=== PATIENT | male | born 1970 | race Caucasian/White ===

== ENCOUNTER 2016-08-05 17:19 | Emergency (ER) | payer MEDICAID ==
[2016-08-05 17:27] VITALS: BP 126/89; PULSE 93; RESP 18; TEMP 98.4; O2SAT 94
--- NOTE | 2016-08-05 17:50 | EDPHY ---
H & P Stated Complaint: wants heart checked for [facility] Time Seen by Provider: 08/05/16 17:39 HPI/ROS: CHIEF COMPLAINT: Medical clearance HISTORY OF PRESENT ILLNESS: The patient is a 46-year-old man who has been evaluated at the mental health clinic and they are placing him in respite care . They sent him here for medical clearance because they are concerned about his cardiac condition. The patient has no complaints but had a cardiac catheterization 1 week ago and had 2 stents placed. He states that he is feeling great since the procedure. He does have a small amount of erythema and swelling to his left elbow where he had an IV placed. No warmth to the touch or fever. No pain in his groin or thrill. REVIEW OF SYSTEMS: Constitutional: denies: chills, fever, recent illness, recent injury EENTM: denies: blurred vision, double vision, nose congestion Respiratory: denies: cough, shortness of breath Cardiac: denies: chest pain, irregular heart rate, lightheadedness, palpitations Gastrointestinal/Abdominal: denies: abdominal pain, diarrhea, nausea, vomiting, blood streaked stools Genitourinary: denies: dysuria, frequency, hematuria, pain Musculoskeletal: denies: joint pain, muscle pain Skin: See HPI Neurological: denies: headache, numbness, paresthesia, tingling, dizziness, weakness Hematologic/Lymphatic: denies: blood clots, easy bleeding, easy bruising Immunologic/allergic: denies: HIV/AIDS, transplant EXAM: GENERAL: Well-appearing, well-nourished and in no acute distress. HEAD: Atraumatic, normocephalic. EYES: Pupils equal round and reactive to light, extraocular movements intact, sclera anicteric, conjunctiva are normal. ENT: TMs normal, nares patent, oropharynx clear without exudates. Moist mucous membranes. NECK: Normal range of motion, supple without lymphadenopathy or JVD. LUNGS: Breath sounds clear to auscultation bilaterally and equal. No wheezes rales or rhonchi. HEART: Regular rate and rhythm without murmurs, rubs or gallops. ABDOMEN: Soft, nontender, normoactive bowel sounds. No guarding, no rebound. No masses appreciated. BACK: No CVA tenderness, no spinal tenderness, step-offs or deformities EXTREMITIES: Normal range of motion, no pitting or edema. No clubbing or cyanosis. NEUROLOGICAL: Cranial nerves II through XII grossly intact. Normal speech, normal gait. 5/5 strength, normal movement in all extremities, normal sensation PSYCH: Normal mood, normal affect. SKIN: Small erythematous area of early cellulitis to left proximal arm on ulnar aspect. He states that this is a site of a previous IV start. Source: Patient Exam Limitations: No limitations - Personal History Current Tetanus Diphtheria and Acellular Pertussis (TDAP): Yes Tetanus Vaccine Date: < 10 years - Medical/Surgical History Hx Asthma: No Hx Chronic Respiratory Disease: Yes Hx Diabetes: No Hx Cardiac Disease: Yes Hx Renal Disease: No Hx Cirrhosis: No Hx Alcoholism: Yes Hx HIV/AIDS: No Hx Splenectomy or Spleen Trauma: No Other PMH: recovering ETOH abuse, HTN, neuropathy, bipolar, PTSD, Cardiac Stents - Family History Significant Family History: No pertinent family hx - Social History Smoking Status: Current every day smoker Alcohol Use: None Drug Use: None Constitutional: Initial Vital Signs Temperature (C) 36.9 C 08/05/16 17:24 Heart Rate 93 08/05/16 17:24 Respiratory Rate 18 08/05/16 17:24 Blood Pressure 126/89 H 08/05/16 17:24 O2 Sat (%) 94 08/05/16 17:24 O2 Delivery Mode Room Air Allergies/Adverse Reactions: codeine Allergy (Verified 08/05/16 17:27) Penicillins Allergy (Verified 08/05/16 17:27) Home Medications: Medication Instructions Recorded Aspirin [Aspirin 81mg (OTC)] 81 mg PO DAILY 10/21/15 Atorvastatin Calcium [Lipitor] 40 mg PO DAILY 10/21/15 Clopidogrel Bisulfate [Plavix (RX)] 75 mg PO DAILY 10/21/15 Gabapentin [Neurontin] 600 mg PO TID 10/21/15 Lisinopril [Zestril] 5 mg PO DAILY 10/21/15 QUEtiapine FUMARATE [SEROquel] 200 mg PO DAILY 10/21/15 Ziprasidone HCl [Geodon] 40 mg PO DAILY18 10/21/15 Aleve 11/22/15 Metoprolol Tartrate 11/22/15 Nitroglycerin 11/22/15 oxyCODONE/APAP 5/325 [Percocet 1 - 2 tab PO Q4PRN PRN #9 tab 07/10/16 5/325 (*)] Ranolazine [Ranexa] 1,000 mg PO BID #60 tab.er.12h 12/24/15 Cephalexin [Keflex] 500 mg PO TID #21 cap 08/05/16 Effient 08/05/16 Medical Decision Making ED Course/Re-evaluation: Will start the patient on Keflex for his early cellulitis. there are no concerning signs of cardiac disease or symptoms at this time. He is medically cleared for the respite care. [facility] is requesting that we obtain urine for the patient for or toxicology testing. The results of this test will be a different twitches placement. We will obtain urine then release him for placement. Differential Diagnosis: Partial list of the Differential diagnosis considered include but were not limited to; cellulitis, bipolar and although unlikely based on the history and physical exam, I also considered arrhythmia, hematoma, pseudoaneurysm. I discussed these differential diagnoses and the plan with the patient as well as the usual and expected course. The patient understands that the diagnosis is provisional and that in medicine we are not always correct and that further workup is often warranted. Usual and customary warnings were given. All of the patient's questions were answered. The patient was instructed to return to the emergency department should the symptoms at all worsen or return, otherwise to followup with the physician as we discussed. - Data Points Laboratory Results: 08/05/16 18:00 Urine Opiates Screen Pending Urine Barbiturates Pending Ur Phencyclidine Scrn Pending Ur Amphetamine Screen Pending U Benzodiazepines Scrn Pending Urine Cocaine Screen Pending U Marijuana (THC) Screen Pending Medications Given: Discontinued Medications Cephalexin HCl (Keflex) 500 mg PO EDNOW ONE PRN Reason: Protocol Stop: 08/05/16 17:53 Last Admin: 08/05/16 18:26 Dose: 500 mg Departure - Departure Disposition: Home, Routine, Self-Care Clinical Impression: Cellulitis Qualifiers: Site of cellulitis: extremity Site of cellulitis of extremity: upper extremity Laterality: left Qualified Code(s): L03.114 - Cellulitis of left upper limb Condition: Fair Instructions: Cellulitis (ED) Additional Instructions: CLEARED FOR RESPITE HOUSING PLACEMENT Referrals: [facility] [Other] - As per Instructions Anamaria Wild MD [Medical Doctor] - As per Instructions Prescriptions: Cephalexin [Keflex] 500 mg PO TID #21 cap
[2016-08-05] MEDS ORDERED: CEPHALEXIN 500 MG CAP PO ONE (17:52)
== END 2016-08-05 18:27 | disposition home or self-care (01) ==
DX: L03.114 Cellulitis of left upper limb (principal); F17.200 Nicotine dependence, unspecified, uncomplicated; I10 Essential (primary) hypertension; Z79.82 Long term (current) use of aspirin; Z95.5 Presence of coronary angioplasty implant and graft
CPT/HCPCS: 80305

== ENCOUNTER 2016-08-16 10:28 | Emergency (ER) | payer MEDICAID ==
[2016-08-16 10:37] VITALS: TEMP 98.6
--- NOTE | 2016-08-16 10:56 | EDPHY ---
H & P Time Seen by Provider: 08/16/16 10:51 HPI/ROS: CHIEF COMPLAINT: Left foot/toe injury HISTORY OF PRESENT ILLNESS: This patient is a 46 year old man presenting with acute injury to his left foot, sustained when trying to get out of bed quickly this morning. The pain is mainly localized to the small toe (5th digit) and lateral foot. The pain is moderate in severity. He denies paresthesia or weakness. ROS: No numbness, weakness, excessive bleeding, syncopal episode, other injury. Past Medical/Surgical History: Non-contributory Social History: Homeless Smoking Status: Current every day smoker Physical Exam: Alert and oriented x3, no acute distress Extremities: Ecchymosis and tenderness to the left 5th toe and lateral foot. No hip or knee pain with range of motion. Ankle non-tender. Skin: No lacerations Neuro: Motor and sensory intact Vascular: Capillary refill brisk distally, 2+ dorsalis pedis and posterior tibial pulses Constitutional: Initial Vital Signs Temperature (C) 37.0 C 08/16/16 10:34 Heart Rate 97 08/16/16 10:34 Respiratory Rate 16 08/16/16 10:34 Blood Pressure 109/73 08/16/16 10:34 O2 Sat (%) 91 L 08/16/16 10:34 O2 Delivery Mode Room Air Allergies/Adverse Reactions: codeine Allergy (Verified 08/05/16 17:27) Penicillins Allergy (Verified 08/05/16 17:27) Home Medications: Medication Instructions Recorded Atorvastatin Calcium [Lipitor] 40 mg PO DAILY 10/21/15 Gabapentin [Neurontin] 600 mg PO TID 10/21/15 Lisinopril [Zestril] 5 mg PO DAILY 10/21/15 QUEtiapine FUMARATE [SEROquel] 200 mg PO DAILY 10/21/15 Ziprasidone HCl [Geodon] 40 mg PO DAILY18 10/21/15 Aleve 11/22/15 Nitroglycerin 11/22/15 Ranolazine [Ranexa] 1,000 mg PO BID #60 tab.er.12h 12/24/15 Cephalexin [Keflex] 500 mg PO TID #21 cap 08/05/16 Effient 08/05/16 Medical Decision Making - Diagnostics Imaging: X-ray of the left foot was obtained. I viewed the images myself on the PACS system. My interpretation of the images is: No acute findings. The radiologist interpretation is pending at this time. I discussed the x-ray findings with the patient. ED Course/Re-evaluation: Patient presents with injury to the left 5th toe/lateral foot, sustained while getting out of bed in a hurry this morning. Tenderness and ecchymosis to the left 5th toe on exam. Ankle, knee, and hip are atraumatic and have full range of motion without pain. Left foot x-ray negative for fx. Toes buddytaped. Departure - Departure Disposition: Home, Routine, Self-Care Clinical Impression: Foot contusion Condition: Good Instructions: Foot Contusion (ED) Additional Instructions: Rest, ice, elevation. Follow up with you primary care provider in one week if pain persists. Return to the emergency department for worsening pain, swelling , numbness, weakness or other concerns. Adult Pain & Fever Control: We recommend Acetaminophen (Tylenol) and Ibuprofen (Motrin,Advil) for pain and fever control. When fever is high or pain severe, both drugs can be used at the same time, but at different intervals. Please note the time differences. Your dose is: Acetaminophen 650mg every 4 to 6 hours Ibuprofen 600mg every 6-8 hours with food OR Naproxen Sodium (Aleve) 200mg every 12 hours. Note: do not take Acetaminophen with Hydrocodone (Vicodin, Lortab) or Oycodone (Percocet). These medications also contain Acetaminophen. No more than 3000mg of Acetaminophen should be taken in 24 hours (for an adult). Referrals: [facility] [Other] - As per Instructions Report Scribed for: Magdalena Riggs Report Scribed by: Marycarmen Braden Date of Report: 08/16/16 Time of Report: 10:56 Physician Review and Approval Statement: 08/16/16 10:56 Portions of this note were transcribed by a medical apparatus model maker. I personally performed a history, physical exam, medical decision making, and confirmed accuracy of information the transcribed note.
[2016-08-16 12:14] VITALS: BP 105/71; PULSE 100; RESP 14; O2SAT 88
== END 2016-08-16 12:12 | disposition home or self-care (01) ==
DX: S90.32XA Contusion of left foot, initial encounter (principal); F17.200 Nicotine dependence, unspecified, uncomplicated; X58.XXXA Exposure to other specified factors, initial encounter

== ENCOUNTER 2016-09-05 18:37 | Emergency (ER) | payer MEDICAID ==
--- NOTE | 2016-09-05 18:42 | EDPHY ---
H & P Time Seen by Provider: 09/05/16 18:41 HPI/ROS: CHIEF COMPLAINT: Ongoing low back pain following fall HISTORY OF PRESENT ILLNESS: The patient presents to the ED complaining of ongoing low back pain following a fall 2 weeks ago. He was seen in the ED and had x-rays of his ankle which were negative. The patient was given a prescription for Flexeril which she reports has not improved his symptoms. The patient is chronically on gabapentin. The patient reports that he is able to ambulate throughout the day and carry 40 lb backpack. He primarily has more significant symptoms in the morning. The patient denies any acute numbness or weakness. He denies fever. He denies additional complaints. The patient does have a history of known coronary artery disease but specifically denies chest pain or shortness of breath. REVIEW OF SYSTEMS: A comprehensive 10 point review of systems is otherwise negative aside from elements mentioned in the history of present illness. Source: Patient Exam Limitations: No limitations - Personal History Tetanus Vaccine Date: < 10 years - Medical/Surgical History Hx Asthma: No Hx Chronic Respiratory Disease: Yes Hx Diabetes: No Hx Cardiac Disease: Yes Hx Renal Disease: No Hx Cirrhosis: No Hx Alcoholism: Yes Hx HIV/AIDS: No Hx Splenectomy or Spleen Trauma: No Other PMH: recovering ETOH abuse, HTN, neuropathy, bipolar, PTSD, Cardiac Stents 07/30/16 - Social History Smoking Status: Current every day smoker - Physical Exam Exam: General Appearance: Alert, no distress Eyes: Pupils equal and round no pallor or injection ENT, Mouth: Mucous membranes moist Respiratory: There are no retractions, lungs are clear to auscultation Cardiovascular: Regular rate and rhythm Gastrointestinal: Abdomen is soft and nontender, no masses, bowel sounds normal Neurological: 5/5 strength noted throughout all muscle groups in the bilateral lower extremities, no evidence of a sensory deficit appreciated Skin: Warm and dry, no rashes Musculoskeletal: Tenderness to palpation noted throughout the lower lumbar spine paraspinal muscles, normal range of motion noted bilateral lower extremities, no clinical evidence of fracture Extremities: symmetrical, full range of motion Allergies/Adverse Reactions: codeine Allergy (Verified 08/05/16 17:27) Penicillins Allergy (Verified 08/05/16 17:27) Home Medications: Medication Instructions Recorded Atorvastatin Calcium [Lipitor] 40 mg PO DAILY 10/21/15 Gabapentin [Neurontin] 600 mg PO TID 10/21/15 Lisinopril [Zestril] 5 mg PO DAILY 10/21/15 QUEtiapine FUMARATE [SEROquel] 200 mg PO DAILY 10/21/15 Ziprasidone HCl [Geodon] 40 mg PO DAILY18 10/21/15 Aleve 11/22/15 Nitroglycerin 11/22/15 Ranolazine [Ranexa] 1,000 mg PO BID #60 tab.er.12h 12/24/15 Cephalexin [Keflex] 500 mg PO TID #21 cap 08/05/16 Effient 08/05/16 Diclofenac Sodium [Voltaren 75 MG 75 mg PO BID PRN #20 tab 09/05/16 (*)] Medical Decision Making ED Course/Re-evaluation: I reviewed the patient's past medical records including his workup from 2 weeks ago. He presents to the ED with ongoing myofascial symptoms of pain and spasm. The patient will be provided a prescription for diclofenac. The patient is advised to follow up with his primary care provider should he have worsening symptoms. The patient is not been provided narcotic pain medications or benzodiazepines in the ED today Departure - Departure Disposition: Home, Routine, Self-Care Clinical Impression: Acute myofascial strain Condition: Good Instructions: Musculoskeletal Pain (ED) Additional Instructions: 1. Take diclofenac as directed for pain. 2. Please schedule a follow-up appointment with your primary care provider at [facility] for any ongoing symptoms. The [facility] has walk-in appointments for the homeless at the following days/locations. No appointment is needed. Wednesday 8-10 am @ [facility] 11 AM-1 PM @ [facility] Wednesday 8-10:30 AM @ [facility] Wednesday 8-10 AM @ [facility] 2-4 PM @ [facility] Wednesday 8-10 AM @ [facility] Referrals: [facility],. [Clinic] - As per Instructions
[2016-09-05 20:09] VITALS: BP 128/77; PULSE 70; RESP 14; TEMP 98.4; O2SAT 94
== END 2016-09-05 20:08 | disposition home or self-care (01) ==
LOC: EDUNIT#
DX: S39.012D Strain of muscle, fascia and tendon of lower back, subsequent encounter (principal); I10 Essential (primary) hypertension; I25.10 Atherosclerotic heart disease of native coronary artery without angina pectoris; F17.200 Nicotine dependence, unspecified, uncomplicated; Z95.5 Presence of coronary angioplasty implant and graft; W19.XXXD Unspecified fall, subsequent encounter

== ENCOUNTER 2016-09-07 09:02 | Inpatient (IN) | payer MEDICAID ==
--- NOTE | 2016-09-07 09:04 | EDPHY ---
H & P Time Seen by Provider: 09/07/16 09:04 Constitutional: Initial Vital Signs Temperature (C) 37.9 C 09/07/16 09:21 Heart Rate 150 H 09/07/16 09:21 Respiratory Rate 20 09/07/16 09:21 Blood Pressure 150/86 H 09/07/16 09:21 O2 Sat (%) 93 09/07/16 09:21 O2 Delivery Mode Nasal Cannula O2 (L/minute) 5 Allergies/Adverse Reactions: codeine Allergy (Verified 08/05/16 17:27) Penicillins Allergy (Verified 08/05/16 17:27) Home Medications: Medication Instructions Recorded Atorvastatin Calcium [Lipitor] 40 mg PO DAILY 10/21/15 Clopidogrel Bisulfate [Plavix (*)] 75 mg PO DAILY 09/07/16 Gabapentin [Neurontin 300 MG (*)] 900 mg PO TID 09/07/16 Herbals/Supplements -Info Only 1 ea PO DAILY 09/07/16 Lisinopril [Zestril 5 mg (*)] 5 mg PO DAILY 09/07/16 QUEtiapine FUMARATE [Seroquel 100 300 mg PO HS 09/07/16 mg (*)] Ranolazine [Ranexa] 1,000 mg PO DAILY 09/07/16 Ziprasidone HCl [Geodon 20MG (*)] 60 mg PO HS 09/07/16 Ziprasidone HCl [Geodon 40MG (*)] 40 mg PO DAILY 09/07/16 Medical Decision Making - Diagnostics Imaging: Imaging Impressions Chest X-Ray 09/07/16 09:12 Impression: Perihilar bronchitis with a possible developing left basilar infiltrate. Head CT 09/07/16 09:53 Impression: There is no acute abnormality identified on this unenhanced CT evaluation. If there is further clinical concern regarding the patient's symptoms, MR imaging is suggested, if not otherwise contraindicated. Findings and recommendations were discussed with Hima Teran MD at 10:25 am, on 09/07/2016. ED Course/Re-evaluation: CHIEF COMPLAINT: AMS HISTORY OF PRESENT ILLNESS: The patient is a 46 y/o male [facility] with altered mental status of unknown duration. EMS reports he was hypoxemic in the 80s, tachycardic in the 140s, with slurred speech, and some disorientation to time and place. He endorses one episode of bilious vomiting this morning. He has access to narcotics and benzos, but denies inappropriate use of these. He denies headache, chest pain, shortness of breath, abdominal pain, leg swelling. He is quite somnolent and unable to provide detailed history or his past medical history. He denies recent alcohol or illicit substance use. REVIEW OF SYSTEMS: Limited by patient presentation. PHYSICAL EXAM: HR, BP, O2 Sat, RR. Temp noted General Appearance: Somnolent, disoriented, well hydrated, appropriate when roused. Head: Atraumatic without scalp tenderness or obvious injury Eyes: Pupils constricted, equal, round, reactive to light and accommodation, EOMI, no trauma, no injection. Nose: Atraumatic, no rhinorrhea, clear. Throat: mucus membranes moist. Neck: Supple, nontender, no lymphadenopathy. Respiratory: No retractions, no distress, no wheezes, and no accessory muscle use. Lungs are clear but diminished bilaterally. Cardiovascular: Tachycardic regular rate and rhythm, no murmurs, rubs, or gallops. Good capillary refill all extremities. Gastrointestinal: Abdomen is soft, nontender, non-distended, no masses, no rebound, no guarding, no peritoneal signs. Musculoskeletal: Normal active ROM of all extremities, atraumatic. Neurological: Somnolent, appropriate, minimally interactive. Slurred speech, confusion, oriented x2. No focal deficit. Bilateral nystagmus. Skin: No rashes, good turgor, no nodules on palpation. Past medical history: Unable to answer. Obtained from records: alcohol abuse, hypertension, neuropathy, bipolar disorder, PTSD Past surgical history: Unable to answer. Obtained from records: multiple cardiac stents - most recent first week of July 2016 Family history: unable to answer Social history: Denies recent alcohol or illicit drug use. Homeless. Prior medical records reviewed including ED visit 09/05/16 for back pain and cardiac catheterization from 11/22/15 that showed total occlusion of RCA. DIAGNOSTICS/PROCEDURES/CRITICAL CARE TIME: Chest x-ray and head CT. I viewed the images myself on the PACS system. The 12 lead EKG was interpreted by myself. Sinus tachycardia rate 149. See hard copy and/or "tracemaster" electronic copy for interpretation. DIFFERENTIAL DIAGNOSIS: The differential diagnosis for the patient's fever included but was not limited to pneumonia, urinary tract infection, viral syndrome, meningitis, and sepsis. MEDICAL DECISION MAKING: This is a chronically-ill homeless 46 y/o male who presents with altered mentation, tachycardia, and hypoxemia from [facility] He is minimally able to contribute to his history during assessment. He denies pain, shortness of breath, or other complaints but is clearly disoriented and somnolent. He is tachycardic in the 140s and hypoxemic around 86% on room air. He meets initial sepsis screening criteria. Plan for sepsis work up. IV established by EMS. Labs drawn including CBC, CHEM, lactate, cultures, UA and urine toxicology. Chest x-ray, head CT, and EKG ordered. 0945: WBC and lactate elevated. Persistent tachycardia. Patient meets severe sepsis criteria. 1L IV NS, 10mg IV Decadron, 2gm IV Cefepime, and 750mg IV Levaquin administered. 1025: Chest x-ray shows multilobar infiltrate and possible congestive failure. Head CT negative. Patient will require admission for severe sepsis and pneumonia. Hospitalist paged. 1028: Dr. Williamson accepts admission for pneumonia, AMS, hypoxemia, and severe sepsis. - Data Points Laboratory Results: Laboratory Results 09/07/16 09:05 09/07/16 09:05 09/07/16 09/07/16 09/07/16 09:30 09:05 09:05 WBC RBC Hgb Hct MCV MCH MCHC RDW Plt Count MPV Neut % (Auto) Lymph % (Auto) [place] % (Auto) Eos % (Auto) Baso % (Auto) Nucleat RBC Rel Count Absolute Neuts (auto) Absolute Lymphs (auto) Absolute Monos (auto) Absolute Eos (auto) Absolute Basos (auto) Absolute Nucleated RBC Immature Gran % Immature Gran # PT INR APTT VBG Lactic Acid 2.7 mmol/L H mmol/L (0.7-2.1) Sodium Potassium Chloride Carbon Dioxide Anion Gap BUN Creatinine Estimated GFR Glucose Calcium Total Bilirubin Troponin I 0.024 ng/mL ng/mL (0-0.034) NT-Pro-B Natriuret Pep Pending Ethyl Alcohol < 10 mg/dL mg/dL (0-10) 09/07/16 09/07/16 09/07/16 09:05 09:05 09:05 WBC 13.94 10^3/uL H 10^3/uL (3.80-9.50) RBC 4.49 10^6/uL 10^6/uL (4.40-6.38) Hgb 12.3 g/dL L g/dL (13.7-17.5) Hct 38.7 % L % (40.0-51.0) MCV 86.2 fL fL (81.5-99.8) MCH 27.4 pg L pg (27.9-34.1) MCHC 31.8 g/dL L g/dL (32.4-36.7) RDW 18.6 % H % (11.5-15.2) Plt Count 305 10^3/uL 10^3/uL (150-400) MPV 10.1 fL fL (8.7-11.7) Neut % (Auto) 84.9 % H % (39.3-74.2) Lymph % (Auto) 7.6 % L % (15.0-45.0) [place] % (Auto) 5.7 % % (4.5-13.0) Eos % (Auto) 1.0 % % (0.6-7.6) Baso % (Auto) 0.4 % % (0.3-1.7) Nucleat RBC Rel Count 0.0 % % (0.0-0.2) Absolute Neuts (auto) 11.83 10^3/uL H 10^3/uL (1.70-6.50) Absolute Lymphs (auto) 1.06 10^3/uL 10^3/uL (1.00-3.00) Absolute Monos (auto) 0.79 10^3/uL 10^3/uL (0.30-0.80) Absolute Eos (auto) 0.14 10^3/uL 10^3/uL (0.03-0.40) Absolute Basos (auto) 0.06 10^3/uL 10^3/uL (0.02-0.10) Absolute Nucleated RBC 0.00 10^3/uL 10^3/uL (0-0.01) Immature Gran % 0.4 % % (0.0-1.1) Immature Gran # 0.06 10^3/uL 10^3/uL (0.00-0.10) PT 12.9 SEC SEC (12.0-15.0) INR 0.98 (0.83-1.16) APTT 25.6 SEC SEC (23.0-38.0) VBG Lactic Acid Sodium 142 mEq/L mEq/L (134-144) Potassium 4.5 mEq/L mEq/L (3.5-5.2) Chloride 102 mEq/L mEq/L (97-110) Carbon Dioxide 26 mEq/l mEq/l (22-31) Anion Gap 14 mEq/L mEq/L (8-16) BUN 8 mg/dL mg/dL (7-23) Creatinine 1.0 mg/dL mg/dL (0.7-1.3) Estimated GFR > 60 Glucose 149 mg/dL H mg/dL (70-100) Calcium 10.2 mg/dL mg/dL (8.5-10.4) Total Bilirubin 0.5 mg/dL mg/dL (0.1-1.4) Troponin I NT-Pro-B Natriuret Pep Ethyl Alcohol Medications Given: Discontinued Medications Dexamethasone (Decadron Injection) 10 mg IVP EDNOW ONE Stop: 09/07/16 10:48 Last Admin: 09/07/16 11:21 Dose: 10 mg Cefepime HCl 2 gm/ Dextrose 100 mls @ 200 mls/hr IV EDNOW ONE PRN Reason: Protocol Stop: 09/07/16 10:14 Last Admin: 09/07/16 11:57 Dose: 100 mls Levofloxacin/Dextrose (Levaquin 750 Mg (Premix)) 150 mls @ 100 mls/hr IV EDNOW ONE PRN Reason: Protocol Stop: 09/07/16 11:14 Last Admin: 09/07/16 10:30 Dose: 150 mls Sodium Chloride (Ns) 2,700 mls @ 5,400 mls/hr 30 ml/kg infuse over 30 min ( 2700 ml) IV EDNOW ONE Stop: 09/07/16 10:14 Last Admin: 09/07/16 10:05 Dose: 2,700 mls Departure - Departure Disposition: [facility] Acute Clinical Impression: Severe sepsis, Hypoxemia Pneumonia Qualifiers: Pneumonia type: due to unspecified organism Laterality: bilateral Lung location : unspecified part of lung Qualified Code(s): J18.9 - Pneumonia, unspecified organism Altered mental status Qualifiers: Altered mental status type: disorientation Qualified Code(s): R41.0 - Disorientation, unspecified Condition: Fair Report Scribed for: Hima Teran Report Scribed by: david Date of Report: 09/07/16 Time of Report: 09:13
--- NOTE | 2016-09-07 09:13 | CPEKG ---
Heart Rate: 149 RR Interval: 403 P-R Interval: 144 QRSD Interval: 72 QT Interval: 256 QTC Interval: 403 P [place]: 61 QRS [place]: 58 T Wave [place]: 44 EKG Severity - ABNORMAL ECG - EKG Impression: SINUS TACHYCARDIA EKG Impression: CONSIDER ANTEROSEPTAL INFARCT EKG Impression: BORDERLINE T ABNORMALITIES, LATERAL LEADS Electronically Signed By: Hima Teran 07-Sep-2016 15:29:25
[2016-09-07 09:17] LABS: % IMMATURE GRANULYOCYTES 0.4 % (0.0-1.1); ABSOLUTE IMMATURE GRANULOCYTES 0.06 10^3/uL (0.00-0.10); ADD DIFF? NO; ADD MORPH? NO; ADD SCAN? NO; ATYPICAL LYMPHOCYTE FLAG 0 (0-99); FRAGMENT RBC FLAG 0 (0-99); HEMATOCRIT 38.7 % (40.0-51.0); HEMOGLOBIN 12.3 g/dL (13.7-17.5); LEFT SHIFT FLG 20 (0-99); LIPEMIA HEMOLYSIS FLAG 80 (0-99); MEAN CELL HEMOGLOBIN 27.4 pg (27.9-34.1); MEAN CELL HEMOGLOBIN CONCENTR. 31.8 g/dL (32.4-36.7); MEAN CELL VOLUME 86.2 fL (81.5-99.8); MEAN PLATELET VOLUME 10.1 fL (8.7-11.7); PLATELET CLUMPS FLAG 10 (0-99); PLATELET COUNT 305 10^3/uL (150-400); RED BLOOD CELL COUNT 4.49 10^6/uL (4.40-6.38); RED CELL DISTRIBUTION WIDTH 18.6 % (11.5-15.2)
[2016-09-07 09:32] LABS: APTT 25.6 SEC (23.0-38.0); INR 0.98 (0.83-1.16); PROTIME(PATIENT) 12.9 SEC (12.0-15.0)
[2016-09-07 09:42] LABS: ANION GAP 14 mEq/L (8-16); BILIRUBIN,TOTAL 0.5 mg/dL (0.1-1.4); CALCIUM 10.2 mg/dL (8.5-10.4); CARBON DIOXIDE 26 mEq/l (22-31); CHLORIDE 102 mEq/L (97-110); GLOMERULAR FILTRATION RATE > 60; GLUCOSE 149 mg/dL (70-100); POTASSIUM 4.5 mEq/L (3.5-5.2); SODIUM 142 mEq/L (134-144)
[2016-09-07] MEDS ORDERED: NS 2,700 ML IV ONE (09:45)
[2016-09-07] MEDS ORDERED: CEFEPIME HCL 2 GM in D5W 100 ML IV ONE (09:45)
[2016-09-07 10:35] LABS: LACGHOST ORDER
[2016-09-07 10:38] LABS: ETHANOL SERUM < 10 mg/dL (0-10)
[2016-09-07] MEDS ORDERED: DEXAMETHASONE 10 MG/ML VIAL IVP ONE (10:47)
[2016-09-07] MEDS ORDERED: ACETAMINOPHEN 325 MG TAB PO PRN (11:27)
[2016-09-07] MEDS ORDERED: ONDANSETRON 4 MG/2 ML VIAL IVP PRN (11:27)
[2016-09-07] MEDS ORDERED: ONDANSETRON DISINTEGRATING 4 MG TAB PO PRN (11:27)
[2016-09-07] MEDS ORDERED: LORazepam 2 MG/ML INJ IVP PRN (11:51)
[2016-09-07] MEDS ORDERED: LORazepam 1 MG TAB PO PRN (11:51)
[2016-09-07] MEDS ORDERED: IPRATROPIUM/ALBUTEROL 3 ML DEYVIAL IH PRN (13:20)
[2016-09-07] MEDS ORDERED: hydrALAZINE 20 MG/ML VIAL IVP PRN (13:23)
[2016-09-07 13:35] LABS: TROPONIN I 0.024 ng/mL (0-0.034)
[2016-09-07] MEDS ORDERED: CLINDAMYCIN 600 MG/DEXTROSE 50 ML IV SCH (14:00)
--- NOTE | 2016-09-07 14:15 | GHP ---
[f rep st] HISTORY AND PHYSICAL DATE OF ADMISSION: 09/07/2016 CHIEF COMPLAINT: Acute hypoxemic respiratory failure, encephalopathy. HISTORY OF PRESENT ILLNESS: Patient is a 46-year-old male with a history of CAD , tobacco abuse, who is homeless, who was [facility] with altered mentation and tachycardia. I was not able to obtain much history from the patient due to encephalopathy. He has had productive cough and fevers for unknown duration. In ER room, tachycardic to 140s and hypoxic to 84%. The rest of my HPI is from ED physician and prior records. REVIEW OF SYSTEMS: As stated above, I reviewed ED physician note and old records. PAST MEDICAL HISTORY: Includes CAD, tobacco abuse, hypertension, hyperlipidemia. He is followed by [facility]. Underwent catheterization September 2015 with a patent left circumflex stent and a completely occluded RCA with failed PCI. Bipolar disorder with depression, chronic pain, PTSD. PAST SURGICAL HISTORY: Cardiac stents. FAMILY HISTORY: Unable to obtain since patient is somnolent. SOCIAL HISTORY: He is homeless. Tobacco abuse. He cannot elicit remaining information. HOME MEDICATIONS: Per recent clinic note April 2016. Aspirin 81 mg daily; atorvastatin 40 mg daily; Plavix 75 mg daily; gabapentin 3 tabs 3 times a day; Geodon 40 mg in the morning, 60 mg in the evening; lisinopril 5; Toprol 0.5 tabs twice a day; nitroglycerin as needed; Ranexa 1000 mg daily; Seroquel 2 tablets a day. PHYSICAL EXAMINATION: VITAL SIGNS: Temperature 36.7, blood pressure 152/86, heart rate 127. GENERAL: Patient is overweight, somnolent, responding minimally to questions. HEENT: Pupils are small, but round and reactive. Oropharynx is dry. CV: Tachycardia. Regular. No murmurs, gallops or rubs. LUNGS: Clear to auscultation anteriorly. ABDOMEN: Soft, nontender, nondistended. Positive bowel sounds. : Suprapubic tenderness. No Hawley. MUSCULOSKELETAL: Moving all 4 extremities. NEUROLOGIC: Very somnolent, not answering questions. Will follow simple commands. Rest both hands when asked. PSYCHIATRIC: Alert and oriented x0. LABORATORY DATA: WBC is 13.9, hemoglobin 12, hematocrit 38, platelets 305. Coags within normal. Lactic acid 2.7 and repeat 1.1. Sodium 142, potassium is 4.5, chloride 102, carbon dioxide 26, creatinine 1, glucose 149, calcium 10.2. Troponin pending. EKG personally reviewed by me. LVH with repolarization pattern. Chest x-ray, no effusion. Subtle left lower lobe opacity. ASSESSMENT AND PLAN: 1. Severe sepsis: will treat for CAP given reported symptoms with Levaquin ( severe PCN allergy). May have also aspirated with somolence. Small LLL opacity on chest x-ray. Check influenza, sputum and blood cultures. Also, a UA. 2. Acute hypoxic toxic respiratory failure: CAP vs. aspiration. Check a troponin, BNP to r/o cardiac etiology. 3. Leukocytosis: Stress inflammation versus pneumonia versus viral etiology. Check UA. Blood culture is pending. 4. Acute encephalopathy: Unclear if this is infectious versus secondary to multiple sedating medications. He is on at home. Urine tox is pending. BAL was negative. Will hold home psych medications. CT head was negative. 5. Coronary artery disease. Stent to left circumflex that was patent in April 2016. A fully occluded RCA was attempted but failed intervention. Opted for medical management at that point. Troponin is pending. 6. History of hyperlipidemia. Continue statin. 7. Accelerated hypertension. Resume oral home meds. P.R.N. IV hydralazine 8. Diet: N.p.o. for now. 9. Deep venous thrombosis prophylaxis. Lovenox. DISPOSITION: Patient warrants admission to SDU given acute encephalopathy and acute hypoxemic respiratory failure. Will continue IV fluids and antibiotics. /[id number]/MODL MTDD
--- NOTE | 2016-09-07 15:21 | GCON ---
[f rep st] CONSULTATION TRANSMISSION SUPERVISOR CONSULTATION DATE OF CONSULTATION: 09/07/2016 REASON FOR ADMISSION: Pneumonia, respiratory failure. HISTORY OF PRESENT ILLNESS: The patient is a 46-year-old white male with a past medical history of homelessness, coronary artery disease, hypertension, hyperlipidemia. He presented with altered ment al status. The patient is markedly somnolent, unable to provide much history. All history is glean ed from the medical record. He was initially seen in the emergency room, was found to be markedly h ypoxemic, as well as tachycardic and admitted. Currently, he is somnolent, heart rate has improved. He is on excessive supplemental oxygen. PAST MEDICAL HISTORY: Significant for coronary artery disease, hypertension, hyperlipidemia. Luz Marina gant note he underwent cardiac catheterization in September of 2015 with a completely occluded RCA. He also is bipolar, has chronic pain and posttraumatic stress disorder. SOCIAL HISTORY: He is homeless. He has a 40+ pack-year smoking history. Unknown alcohol use. MEDICATIONS: At home include aspirin, atorvastatin, Plavix, gabapentin, Geodon, lisinopril, Toprol, nitroglycerin, Ranexa, Seroquel. PHYSICAL EXAM: VITAL SIGNS: Blood pressure 109/67, pulse 112, respirations 14, temperature 37.4, o xygen saturation 94% on 2 L. GENERAL: He is a well-developed, 46-year-old, white male who is somno lent and on supplemental oxygen. HEENT: Eyes are PERRLA, EOMI. Throat exam is deferred. NECK: S upple. No cervical adenopathy. HEART: Regular rate and rhythm with a 2/6 systolic murmur at the l eft sternal border without radiation. LUNGS: Diminished breath sounds. Increased crackles in the bases. There is no wheeze. ABDOMEN: Soft, nontender. Bowel sounds are present in all 4 quadrants . EXTREMITIES: No clubbing, cyanosis, or edema. LABORATORIES: White count is 13.9, hemoglobin 12, hematocrit 38, platelet count is 305. INR 0.98. Sodium 142, potassium 4.5, chloride 102, CO2 is 26, BUN is 8, creatinine is 1, glucose is 149. Alcohol levels less than 10. Lactate is 1.1. Initial lactate, however, was 2.71. IMAGING: Chest x-ray shows bronchitis, possible left basilar infiltrate. CT scan of the head shows nothing acute. IMPRESSION: 1. Acute respiratory failure, stable on supplemental oxygen. 2. Probable pneumonia. 3. Sepsis. 4. Encephalopathy with somnolence. 5. History of coronary artery disease. 6. History of hypertension. RECOMMENDATIONS: 1. Agree with admission to the Intensive Care Unit. 2. Agree with current antibiotic coverage. 3. DVT and PE prophylaxis. 4. Stress ulcer prophylaxis. 5. Supplemental oxygen. 6. Frequent nebulizer use with both albuterol and Atrovent. 7. Consider IV steroids given his long-term smoking history and possible COPD. /[id number]/MODL
[2016-09-07] MEDS: NICOTINE 21 MG/24 HR PATCH TD SCH (15:31)
[2016-09-07] MEDS: NS 1,000 ML IV SCH (15:32)
[2016-09-07 15:47] LABS: COLOR PALE YELLOW; LEUKOCYTE ESTERASE,URINE NEGATIVE (NEGATIVE); NITRITE,URINE NEGATIVE (NEGATIVE)
[2016-09-07 16:08] LABS: MUCUS TRACE /lpf (NONE-1+)
[2016-09-07] MEDS ORDERED: ZIPRASIDONE HCL 40 MG PO SCH (22:00)
[2016-09-07] MEDS: oxyCODONE IR 5 MG TAB PO PRN (22:13)
[2016-09-07] MEDS: GABAPENTIN 300 MG CAP PO SCH (22:47)
[2016-09-07] MEDS: ZIPRASIDONE HCL 40 MG PO SCH (22:50)
[2016-09-07] MEDS ORDERED: QUEtiapine FUMARATE 300 MG TAB PO SCH (23:30)
[2016-09-08] MEDS: NS 1,000 ML IV SCH (01:49)
[2016-09-08 05:55] LABS: % IMMATURE GRANULYOCYTES 0.6 % (0.0-1.1); ABSOLUTE IMMATURE GRANULOCYTES 0.09 10^3/uL (0.00-0.10); ADD DIFF? NO; ADD MORPH? NO; ADD SCAN? NO; ATYPICAL LYMPHOCYTE FLAG 0 (0-99); FRAGMENT RBC FLAG 20 (0-99); HEMATOCRIT 27.2 % (40.0-51.0); HEMOGLOBIN 8.6 g/dL (13.7-17.5); LEFT SHIFT FLG 40 (0-99); LIPEMIA HEMOLYSIS FLAG 80 (0-99); MEAN CELL HEMOGLOBIN 26.9 pg (27.9-34.1); MEAN CELL HEMOGLOBIN CONCENTR. 31.6 g/dL (32.4-36.7); MEAN PLATELET VOLUME 10.2 fL (8.7-11.7); PLATELET CLUMPS FLAG 10 (0-99); PLATELET COUNT 242 10^3/uL (150-400); RED CELL DISTRIBUTION WIDTH 18.6 % (11.5-15.2)
[2016-09-08 06:15] LABS: ANION GAP 8 mEq/L (8-16); CALCIUM 8.9 mg/dL (8.5-10.4); CARBON DIOXIDE 24 mEq/l (22-31); CHLORIDE 109 mEq/L (97-110); CREATININE 0.7 mg/dL (0.7-1.3); GLOMERULAR FILTRATION RATE > 60; GLUCOSE 110 mg/dL (70-100); POTASSIUM 4.3 mEq/L (3.5-5.2); SODIUM 141 mEq/L (134-144)
[2016-09-08 07:53] VITALS: BP 122/81; PULSE 91; RESP 16; TEMP 97.8; O2SAT 100
[2016-09-08] MEDS: oxyCODONE IR 5 MG TAB PO PRN (08:03)
[2016-09-08] MEDS: GABAPENTIN 300 MG CAP PO SCH (08:06)
[2016-09-08] MEDS: ZIPRASIDONE HCL 40 MG PO SCH (08:07)
[2016-09-08] MEDS: NICOTINE 21 MG/24 HR PATCH TD SCH (08:15)
--- NOTE | 2016-09-08 08:55 | PDINTPN ---
Statistical Engineer Progress Note Assessment/Plan: Assessment/Plan: * Acute respiratory failure-markedly improved oxygen requirements have diminished. * Pneumonia-improved on current antibiotic coverage -we will change to p.o. antibiotics today. * Encephalopathy-resolved * CAD * HTN * Dispo-transfer to floor Subjective: Overall patient feels markedly improved. He has less breathless. His cough has diminished. He is ambulating well. Objective: Vital Signs Temp Pulse Resp BP Pulse Ox 36.6 C 91 16 122/81 H 100 09/08/16 07:50 09/08/16 07:50 09/08/16 07:50 09/08/16 07:50 09/08/16 07:50 Microbiology 09/07/16 18:20 - Final Sputum, Expectorated Laboratory Results 09/08/16 05:00 09/08/16 05:00 09/07/16 09/08/16 09/09/16 05:59 05:59 05:59 Intake Total 4859 Output Total 3275 Balance 1584 PT 12.9 SEC (12.0-15.0) 09/07/16 09:05 INR 0.98 (0.83-1.16) 09/07/16 09:05 Physical Exam - Physical Exam General Appearance: alert, no apparent distress EENT: PERRL/EOMI, normal ENT inspection, pharynx normal, TMs normal Neck: non-tender, full range of motion, supple, normal inspection Respiratory: crackles (Few basilar), No respiratory distress, No wheezing, No prolonged expiration Cardiac/Chest: normal peripheral pulses, regular rate, rhythm, systolic murmur Peripheral Pulses: 2+: carotid (R), carotid (L), femoral (R), femoral (L), dorsalis-pedis (R), dorsalis-pedis (L) Abdomen: normal bowel sounds, non-tender, soft Male Genitalia: deferred Rectal: deferred Skin: normal color, warm/dry Extremities: normal range of motion, non-tender, normal inspection, normal capillary refill ICD10 Worksheet Patient Problems: Problems Problem Status Onset Altered mental status Acute Hypoxemia Acute Pneumonia Acute Severe sepsis Acute Chest pain Acute
[2016-09-08] MEDS ORDERED: ENOXAPARIN 40 MG/0.4 ML SYR SC SCH (09:00)
[2016-09-08] MEDS ORDERED: CLOPIDOGREL BISULFATE 75 MG TAB PO SCH (09:00)
[2016-09-08] MEDS ORDERED: NON-FORMULARY NEW DRUG (Ranolazine [Ranexa] 1,000 MG) PO SCH (09:00)
[2016-09-08] MEDS ORDERED: RANOLAZINE 500 MG TAB.ER PO SCH (09:00)
[2016-09-08] MEDS ORDERED: LISINOPRIL 5 MG TAB PO SCH (09:00)
[2016-09-08] MEDS ORDERED: predniSONE 20 MG TAB PO SCH (09:00)
[2016-09-08] MEDS ORDERED: ATORVASTATIN CALCIUM 40 MG TAB PO SCH (09:00)
--- NOTE | 2016-09-08 10:33 | HOSPPROG ---
Hospitalist Progress Note Assessment/Plan: #Toxic encephalopathy:resolved. Did use friend's Percocet #Acute hypoxemic resp failure: due to aspiration, atypical PNA. Flu negative #CAD: cont home meds #Leukocytosis: due to pred #Disp: DC today if clinically stable Subjective: no SOB today Objective: Vital Signs Temp Pulse Resp BP Pulse Ox 36.6 C 91 16 122/81 H 100 09/08/16 07:50 09/08/16 07:50 09/08/16 07:50 09/08/16 07:50 09/08/16 07:50 Microbiology 09/07/16 18:20 - Final Sputum, Expectorated Laboratory Results 09/08/16 05:00 09/08/16 05:00 09/07/16 09/08/16 09/09/16 05:59 05:59 05:59 Intake Total 4859 Output Total 3275 Balance 1584 PT 12.9 SEC (12.0-15.0) 09/07/16 09:05 INR 0.98 (0.83-1.16) 09/07/16 09:05 - Physical Exam Constitutional: no apparent distress Eyes: PERRL Ears, Nose, Mouth, Throat: moist mucous membranes Cardiovascular: regular rate and rhythym Respiratory: no respiratory distress, reduced air movement Gastrointestinal: normoactive bowel sounds Skin: warm Musculoskeletal: full muscle strength Neurologic: AAOx3 ICD10 Worksheet Patient Problems: Problems Problem Status Onset Altered mental status Acute Hypoxemia Acute Pneumonia Acute Severe sepsis Acute Chest pain Acute
--- NOTE | 2016-09-08 11:53 | GDS ---
[f rep st] DISCHARGE SUMMARY DISCHARGE DIAGNOSES: 1. Toxic encephalopathy. 2. Acute hypoxemic respiratory failure. 3. Coronary artery disease. 4. Community-acquired pneumonia. 5. Leukocytosis. 6. Opioid use. 7. Tobacco abuse. 8. Hyperlipidemia. HISTORY OF PRESENT ILLNESS: Patient is a 46-year-old male with history of tobacco abuse, CAD who is homeless who was brought in from the [facility] with altered mentation and tachycardia. Initially was not able to obtain his history as patient was obtunded. In the emergency room, he did say he has been having a cough and fevers. He was tachycardic, 140s, and hypoxic to 84% in the emergency room. HOSPITAL COURSE BY PROBLEM: 1. Toxic encephalopathy: Likely multifactorial given acute infection and he endorsed taking his friend's oxycodone along with his own Klonopin. He was advised to take only prescriptions prescribed to him. 2. Acute hypoxemic respiratory failure: Community-acquired pneumonia versus aspiration. He is currently stable on room air. Will treat for 5 days with Levaquin. 3. Tobacco abuse: Used patch here but declined prescription at discharge. He was counseled on cessation. 4. CAD: Resume home medications. 5. Leukocytosis: Mildly elevated today secondary to steroids. 6. Benign hypertension: Continue home medications. DISPOSITION: Patient is stable for discharge. NEW MEDICATIONS: Levaquin. FOLLOWUP: With his PCP. /[id number]/MODL MTDHaja
[2016-09-08] MEDS ORDERED: ZIPRASIDONE HCL 60 MG PO SCH (21:00)
[2016-09-10] MEDS ORDERED: THIAMINE HCL 100 MG TAB PO SCH (09:00)
== END 2016-09-08 11:52 | disposition home or self-care (01) | DRG 917 ==
LOC: EDUNIT# → F2N 14:21
PROVIDERS: ADMIT Internal Medicine; ATTEND Internal Medicine
DX: T40.2X1A Poisoning by other opioids, accidental (unintentional), initial encounter (principal); G92 Toxic encephalopathy; J18.9 Pneumonia, unspecified organism; J96.01 Acute respiratory failure with hypoxia; I25.10 Atherosclerotic heart disease of native coronary artery without angina pectoris; F17.210 Nicotine dependence, cigarettes, uncomplicated; E78.5 Hyperlipidemia, unspecified; I10 Essential (primary) hypertension; Z59.0 Homelessness
CPT/HCPCS: 80305; 87449-90; 96365; G0480; J0692; J1650; J1956

== ENCOUNTER 2016-10-13 13:13 | Emergency (ER) | payer MEDICAID ==
--- NOTE | 2016-10-13 13:43 | EDPHY ---
H & P Stated Complaint: PAIN L HIP, FEELS IT IS "LOCKED UP" Time Seen by Provider: 10/13/16 13:29 HPI/ROS: CHIEF COMPLAINT: Chronic left hip pain HISTORY OF PRESENT ILLNESS: The patient presents the ED with an acute exacerbation of chronic left hip pain. The patient reports a sensation that he was experiencing locking involving his hip earlier today. He has been ambulatory on the extremity. He felt a sensation of locking earlier today. The patient tells me seen orthopedic surgeon on the of this month. The patient denies any focal numbness or weakness. The patient denies fever or additional complaints. REVIEW OF SYSTEMS: A comprehensive 10 point review of systems is otherwise negative aside from elements mentioned in the history of present illness. Source: Patient - Personal History Current Tetanus Diphtheria and Acellular Pertussis (TDAP): Yes Tetanus Vaccine Date: < 10 years - Medical/Surgical History Hx Asthma: No Hx Chronic Respiratory Disease: Yes Hx Diabetes: No Hx Cardiac Disease: Yes Hx Renal Disease: No Hx Cirrhosis: No Hx Alcoholism: Yes Hx HIV/AIDS: No Hx Splenectomy or Spleen Trauma: No Other PMH: recovering ETOH abuse, HTN, neuropathy, bipolar, PTSD, Cardiac Stents 07/30/16, COPD, CAD - Social History Smoking Status: Current every day smoker - Physical Exam Exam: General Appearance: Alert, no distress Eyes: Pupils equal and round no pallor or injection ENT, Mouth: Mucous membranes moist Respiratory: There are no retractions, lungs are clear to auscultation Cardiovascular: Regular rate and rhythm Gastrointestinal: Abdomen is soft and nontender, no masses, bowel sounds normal Neurological: A&O, normal motor function, normal sensory exam, normal cranial nerves Skin: Warm and dry, no rashes Musculoskeletal: Neck is supple nontender Extremities: symmetrical, full range of motion Constitutional: Initial Vital Signs Temperature (C) 37.1 C 10/13/16 13:14 Heart Rate 109 H 10/13/16 13:14 Respiratory Rate 16 10/13/16 13:14 Blood Pressure 109/88 H 10/13/16 13:14 O2 Sat (%) 94 10/13/16 13:14 O2 Delivery Mode Room Air Allergies/Adverse Reactions: codeine Allergy (Verified 10/13/16 13:18) Penicillins Allergy (Verified 10/13/16 13:18) Home Medications: Medication Instructions Recorded Atorvastatin Calcium [Lipitor 40 40 mg PO DAILY 10/21/15 mg (*)] Clopidogrel Bisulfate [Plavix (*)] 75 mg PO DAILY 09/07/16 Gabapentin [Neurontin 300 MG (*)] 900 mg PO TID 09/07/16 Lisinopril [Zestril 5 mg (*)] 5 mg PO DAILY 09/07/16 QUEtiapine FUMARATE [Seroquel 100 300 mg PO HS 09/07/16 mg (*)] Ranolazine [Ranexa] 1,000 mg PO DAILY 09/07/16 Ziprasidone HCl [Geodon 20MG (*)] 60 mg PO HS 09/07/16 Medical Decision Making ED Course/Re-evaluation: The patient presents to the emergency department with chronic left hip pain. The patient is noted to be neurologically intact. He has normal range of motion of his hip. I doubt acute fracture or a utility of an x-ray. The patient will be referred to the orthopedic surgeon as he is scheduled to do on the . The patient is encouraged to take ibuprofen as needed for pain. Departure - Departure Disposition: Home, Routine, Self-Care Clinical Impression: Chronic left hip pain Condition: Good Instructions: Musculoskeletal Pain (ED) Additional Instructions: 1. Take Ibuprofen or Motrin 600 mg by mouth three times a day. 2. Please return to the emergency department for markedly worsening symptoms or other concerns.
[2016-10-13 14:13] VITALS: BP 106/71; PULSE 90; RESP 20; TEMP 98.4; O2SAT 98
== END 2016-10-13 14:22 | disposition home or self-care (01) ==
DX: M25.552 Pain in left hip (principal); G89.29 Other chronic pain; I10 Essential (primary) hypertension; J44.9 Chronic obstructive pulmonary disease, unspecified; I25.10 Atherosclerotic heart disease of native coronary artery without angina pectoris; F17.200 Nicotine dependence, unspecified, uncomplicated; Z95.5 Presence of coronary angioplasty implant and graft